=== PATIENT | male | born 1980 | race African-American/Black ===

== ENCOUNTER 2017-06-11 01:25 | Emergency (ER) | payer OTHER ==
[~2017-06-11] VITALS: Ht 170.2 cm; Wt 77.1 kg
--- NOTE | 2017-06-11 01:47 | PHYS DOC ---
Past Medical History Past Medical History: No Pertinent History Past Surgical History: No Surgical History Alcohol Use: None Drug Use: None Adult General Chief Complaint Chief Complaint: WRIST PAIN HPI HPI Patient is a 36 year old M who presents with left pain. Patient states approximately a week ago he injured his wrist at work and since then the pain has been persistent. While tonight at work the pain was worse therefore worked abdomen to the emergency room for an evaluation. Patient denies any recent trauma. Patient has pain with flexing his wrist. Patient denies any injuries to his elbow or shoulder. Patient elevated blood pressure in triage which she states takes no medication for and did not know he had elevated blood pressure. Patient states he has no headache no blurry vision and is asymptomatic from the elevated blood pressure. Review of Systems Review of Systems GEN: Denies fevers, chills, sweats HEENT: Denies blurred vision, sore throat CV: Denies chest pain RESP: Denies shortness of air, cough GI: Denies n/v/d NEURO: Denies confusion, dizziness MSK: Left wrist pain Current Medications Current Medications Current Medications Medications (Trade) Dose Ordered Sig/Jacque Start Time Stop Time Status Last Admin Dose Admin Clonidine HCl (Catapres) 0.1 mg 1X ONCE 06/11/17 02:30 06/11/17 02:31 UNV Physical Exam Physical Exam GEN.: No apparent distress. Alert and oriented. HEENT: Head is normocephalic, atraumatic NECK: Supple. LUNGS: CTAB. HEART: RRR, S1, S2 present. Peripheral pulses intact ABDOMEN: Soft, nontender. Positive bowel sounds. EXTREMITIES: Without any cyanosis, enters palpation to the left distal radius with decreased range of motion secondary to pain, no obvious deformity to the left distal radius, radial pulse +2, capillary refill to the fingers less than 2 seconds. NEUROLOGIC: Normal speech, normal tone PSYCHIATRIC: Normal affect, normal mood. SKIN: No ulcerations Current Patient Data Vital Signs Vital Signs Date Time Temp Pulse Resp B/P (MAP) Pulse Ox O2 Delivery O2 Flow Rate FiO2 06/11/17 01:29 98.9 87 20 99 Room Air 98.9 EKG EKG [] Radiology/Procedures Radiology/Procedures [] Course & Med Decision Making Course & Med Decision Making Pertinent Labs and Imaging studies reviewed. (See chart for details) ED course: Patient was seen and examined emergency room x-ray of his left wrist was ordered There was told to the patient to follow-up with [employer] work comp tomorrow and report the injury and whatever protocols to have since we do not have them on file. 0218: Patient was updated on x-ray results. Repeat blood pressure was 180/100 and patient was asymptomatic. Recommended observing the patient for period time before discharging. 0225: We'll give the patient 0.1 and Catapres in the emergency room and place him on Norvasc 5 mg daily and have him follow-up MDM: After reviewing the chart, CC/HPI/PMH, physical exam, [radiological results], I do not believe the patient has significant wrist injury warranting further workup and/or admission at this time. I do not believe the patient is having hypertensive crisis and he is asymptomatic hypertension. We'll go ahead and treat the patient for his asymptomatic hypertension with a prescription for Norvasc and follow-up information for low-cost clinics. Patient stable for discharge. Additional verbal discharge instructions were provided to the patient and that if symptoms get worse or any new symptoms arise that are worrisome to the patient he is to return to the emergency room immediately [] Dragon Disclaimer Dragon Disclaimer This electronic medical record was generated, in whole or in part, using a voice recognition dictation system. Departure Departure Impression: Primary Impression: Left wrist sprain Additional Impression: Hypertension Disposition: 01 HOME, SELF-CARE Condition: IMPROVED Patient Instructions: Arterial Hypertension, Wrist Splint, [id number] Additional Instructions: Please follow up with a work comp for further evaluation and management of your left wrist sprain. Please follow up with low cost clinic to further evaluate your hypertension. Scripts Amlodipine Besylate (NORVASC) 5 Mg Tablet 1 TAB PO DAILY, #30 TAB 5 Refills Prov: CRISTINA HERNANDEZ DO 06/11/17 Problem Qualifiers CRISTINA HERNANDEZ DO Jun 11, 2017 01:47
[2017-06-11] MEDS ORDERED: cloNIDine HCL 0.1 MG TABLET PO ONE (02:30)
[2017-06-11] MEDS ORDERED: cloNIDine HCL 0.1 MG TABLET ONE (02:31)
[2017-06-11] MEDS ORDERED: AMLO5TAB4 PO (02:31)
[2017-06-11 02:32] VITALS: BP 179/99
--- NOTE | 2017-06-11 07:26 | RAD ---
Examination: 3 views of the left wrist History: History of wrist pain, swelling Comparison: None available Findings: The alignment of the carpal bones grossly appears unremarkable. There is no obvious acute fracture identified. Impression: No acute osseous findings.
== END 2017-06-11 02:40 | disposition home or self-care (01) ==
LOC: ER 01:25
DX: S63.502A Unspecified sprain of left wrist, initial encounter (principal); I10 Essential (primary) hypertension; X58.XXXA Exposure to other specified factors, initial encounter; Y93.89 Activity, other specified; Y99.8 Other external cause status; Y92.89 Other specified places as the place of occurrence of the external cause
CPT/HCPCS: 29125; 73110; 99284-25

== ENCOUNTER 2021-08-05 13:11 | Emergency (ER) | payer SELFPAY ==
[~2021-08-05] VITALS: Ht 175.3 cm; Wt 85.0 kg
[~2021-08-05 13:11] MED LIST: AMLO5TAB4 PO
[2021-08-05 16:02] LABS: BILIRUBIN,URINE NEGATIVE (NEG); CLARITY,URINE CLOUDY; COLOR,URINE YELLOW; NITRITE,URINE NEGATIVE (NEG); PH,URINE 7.5 (<5.0-8.0); PROTEIN,URINE NEGATIVE (NEG-TRACE)
[2021-08-05 16:24] LABS: AMORPHOUS SEDIMENT,UR PRESENT /HPF; BACTERIA,URINE 0 /HPF (0-FEW)
--- NOTE | 2021-08-05 16:44 | RAD ---
CLINICAL HISTORY: Reason: Left testicle pain / Spl. Instructions: / History: COMPARISON: None available TECHNIQUE: Ultrasound images of the scrotum was performed with feliciano-scale and color doppler. FINDINGS: The right testis measures 4.1 x 2.7 x 2.2. The left testis measures 3.8 x 2.4 x 1.7. There is no intratesticular abnormality. Testicular vascularity is symmetric and within normal limits . Incidental punctate calcifications are seen in both testicles The epididymis is normal in appearance bilaterally. There is no hydrocele or varicocele. IMPRESSION: Essentially unremarkable scrotal ultrasound. Testicular microlithiasis. This is of unknown clinical significance and may be related to granulomato us infection, however occasionally testicular calcifications possibly disposition to malignancy Electronically signed by: Tammy Best MD (08/05/2021 4:41 PM) [facility]
--- NOTE | 2021-08-05 17:27 | RAD ---
EXAMINATION: CT HEAD/BRAIN WO CLINICAL HISTORY: Elevated blood pressure TECHNIQUE: Serial axial images without IV contrast were obtained from the vertex to the foramen magnu m. CT Dose Reduction Employed: One or more of the following individualized dose reduction techniques wer e utilized for this examination: 1. Automated exposure control 2. Adjustment of the mA and/or kV ac cording to patient size 3. Use of iterative reconstruction technique. COMPARISON: None FINDINGS: Acute Change: No evidence of acute intracranial abnormality. Hemorrhage: No evidence of acute intracranial hemorrhage. Mass Lesion/Mass Effect: No evidence of intracranial mass or extraaxial fluid collection. No signific ant mass effect. Parenchyma: Parenchyma within normal limits for age. Ventricles: Ventricles within normal limits for age. Paranasal Sinuses and Skull Base: Visualized paranasal sinuses clear. Visualized skull base and soft tissues unremarkable. IMPRESSION: No evidence of acute intracranial abnormality. Electronically signed by: Chris Stauffer DO (08/05/2021 5:25 PM) [facility]
--- NOTE | 2021-08-05 17:29 | RAD ---
EXAMINATION: XR CHEST 1V CLINICAL HISTORY: Testicular pain EXAM DATE/TIME: 08/05/2021 4:58 PM COMPARISON: None FINDINGS: Lines, Tubes, and Devices: None. Cardiomediastinal Silhouette: Within normal limits. Lungs and Pleura: No evidence of focal airspace consolidation or pleural effusion. Pulmonary vasculat ure unremarkable. Bones and Soft Tissues: No acute osseous abnormality. IMPRESSION: No evidence of acute cardiopulmonary abnormality. Electronically signed by: Chris Stauffer DO (08/05/2021 5:26 PM) [facility]
--- NOTE | 2021-08-05 18:32 | PHYS DOC ---
Past Medical History Past Medical History: No Pertinent History (RYAN ADAMS APRN) Past Surgical History: No Surgical History (RYAN ADAMS APRN) Smoking Status: Current Every Day Smoker Alcohol Use: None Drug Use: None (RYAN ADAMS APRN) General Adult EDM: Chief Complaint: GROIN PAIN HPI: HPI: Patient is a 40-year-old male who presents emergency department with chief complaint of left testicular pain for the past week. Patient denies trauma or injury to his testicle. Reports a slow onset of pain currently rates at a 6 out of 10 pain scale. Denies swelling or redness to his testicles. Denies lesions or rashes to his groin or genitals. Denies recent fever or chills. Denies seeing blood in his urine. Denies pain with urination, increased urinary fr equency, urinary burning. Patient denies penile discharge, denies STI concerns. Patient denies seeing blood in his semen. Patient denies increased pain during sex or ejaculation. Patient denies numbness or tingling to his groin or buttocks area. Patient denies a family history of testicular cancer or other cancers. Reports a family history of diabetes, heart disease, hypertension. Patient denies taking prescription medications at home, denies taking [id number] pain medications or trying nonpharmacological pain relief methods since pain started 1 week ago, patient denies other physical complaints or physical concerns. (RYAN ADAMS APRN) Review of Systems: Review of Systems: 14 body systems of review of systems have been reviewed. See HPI for pertinent positives and negative responses, otherwise all other systems are negative, nonpertinent or noncontributory. Constitutional: Negative except as outlined in HPI above. Skin: Negative except as outlined in HPI above. Eyes: Negative except as outlined in HPI above. HENT: Negative except as outlined in HPI above. Respiratory: Negative except as outlined in HPI above. Cardiovascular: Negative except as outlined in HPI above. GI: Negative except as outlined in HPI above. : Negative except as outlined in HPI above. Musculoskeletal: Negative except as outlined in HPI above. Integument: Negative except as outlined in HPI above. Neurologic: Negative except as outlined in HPI above. Endocrine: Negative except as outlined in HPI above. Lymphatic: Negative except as outlined in HPI above. Psychiatric: Negative except as outlined in HPI above. (RYAN ADAMS APRN) Heart Score: C/O Chest Pain: No Risk Factors: Risk Factors: DM, Current or recent (<one month) smoker, HTN, HLP, family history of CAD, obesity. Risk Scores: Score 0 - 3: 2.5% MACE over next 6 weeks - Discharge Home Score 4 - 6: 20.3% MACE over next 6 weeks - Admit for Clinical Observation Score 7 - 10: 72.7% MACE over next 6 weeks - Early Invasive Strategies (RYAN ADAMS APRN) Allergies: Allergies: Allergies Coded Allergies Type Severity Reaction Last Updated Verified No Known Drug Allergies 08/05/21 No (RYAN ADAMS APRN) Physical Exam: PE: Constitutional: Well developed, well nourished, no acute distress, non-toxic appearance. 40-year-old male in no apparent distress. HENT: Normocephalic, atraumatic. Eyes: Conjunctiva normal, no discharge. Neck: Normal range of motion. Cardiovascular: Distal cap refill less than 2 seconds, no cyanosis appreciated. Lungs & Thorax: Patient is in no respiratory distress, no adventitious lung sounds appreciated. Abdomen: Bowel sounds normal, soft, no tenderness, no masses, no pulsatile masses. No bruising or skin discoloration of the abdomen. Skin: Warm, dry, no erythema, no rash. Back: No tenderness, no CVA tenderness. Extremities: No tenderness, no cyanosis, no clubbing, ROM intact, no edema. Neurologic: Alert and oriented X 3, normal motor function, normal sensory function, no focal deficits noted. Psychologic: Affect normal, judgement normal, mood normal. : Testicular and genital exam performed with ED nurse at bedside for general handling supervisor, no lesions appreciated of the genitals testicles or penis. No penile discharge appreciated. No rashes appreciated. Pain to palpation of left testicle, no epididymal swelling or abnormalities appreciated, no inguinal hernias appreciated, no swelling or erythema of the testicles appreciated. No pain to palpation of the right testicle. No epididymal swelling of the right epididymis. (RYAN ADAMS APRN) Current Patient Data: Labs: Laboratory Tests Test 08/05/21 15:54 Urine Collection Type Unknown Urine Color Yellow Urine Clarity Cloudy Urine pH 7.5 (<5.0-8.0) Urine Specific [place] 1.015 (1.000-1.030) Urine Protein Negative mg/dL (NEG-TRACE) Urine Glucose (UA) Negative mg/dL (NEG) Urine Ketones (Stick) Negative mg/dL (NEG) Urine Blood Negative (NEG) Urine Nitrite Negative (NEG) Urine Bilirubin Negative (NEG) Urine Urobilinogen Dipstick 1.0 mg/dL (0.2 mg/dL) Urine Leukocyte Esterase Negative (NEG) Urine RBC 1-2 /HPF (0-2) Urine WBC 1-4 /HPF (0-4) Urine Squamous Epithelial Cells Occ /LPF Urine Amorphous Sediment Present /HPF Urine Bacteria 0 /HPF (0-FEW) Vital Signs: Vital Signs Date Time Temp Pulse Resp B/P (MAP) Pulse Ox O2 Delivery O2 Flow Rate FiO2 08/05/21 16:51 222/105 (144) 08/05/21 15:47 97.8 80 17 99 Room Air 97.8 (RYAN ADAMS APRN) EKG: EKG: [] (RYAN ADAMS APRN) Radiology/Procedures: Radiology/Procedures: REASON: eleavted bp PROCEDURE: CT HEAD WO CONTRAST EXAMINATION: CT HEAD/BRAIN WO CLINICAL HISTORY: Elevated blood pressure TECHNIQUE: Serial axial images without IV contrast were obtained from the vertex to the foramen magnum. CT Dose Reduction Employed: One or more of the following individualized dose reduction techniques were utilized for this examination: 1. Automated exposure control 2. Adjustment of the mA and/or kV according to patient size 3. Use of iterative reconstruction technique. COMPARISON: None FINDINGS: Acute Change: No evidence of acute intracranial abnormality. Hemorrhage: No evidence of acute intracranial hemorrhage. Mass Lesion/Mass Effect: No evidence of intracranial mass or extraaxial fluid collection. No significant mass effect. Parenchyma: Parenchyma within normal limits for age. Ventricles: Ventricles within normal limits for age. Paranasal Sinuses and Skull Base: Visualized paranasal sinuses clear. Visualized skull base and soft tissues unremarkable. IMPRESSION: No evidence of acute intracranial abnormality. Electronically signed by: Chris Stauffer DO (08/05/2021 5:25 PM) [facility] REASON: testicular pain PROCEDURE: CHEST AP ONLY EXAMINATION: XR CHEST 1V CLINICAL HISTORY: Testicular pain EXAM DATE/TIME: 08/05/2021 4:58 PM COMPARISON: None FINDINGS: Lines, Tubes, and Devices: None. Cardiomediastinal Silhouette: Within normal limits. Lungs and Pleura: No evidence of focal airspace consolidation or pleural effusion. Pulmonary vasculature unremarkable. Bones and Soft Tissues: No acute osseous abnormality. IMPRESSION: No evidence of acute cardiopulmonary abnormality. Electronically signed by: Chris Stauffer DO (08/05/2021 5:26 PM) [facility] REASON: Left testicle pain PROCEDURE: TESTICULAR/SCROTUM CLINICAL HISTORY: Reason: Left testicle pain / Spl. Instructions: / History: COMPARISON: None available TECHNIQUE: Ultrasound images of the scrotum was performed with feliciano-scale and color doppler. FINDINGS: The right testis measures 4.1 x 2.7 x 2.2. The left testis measures 3.8 x 2.4 x 1.7. There is no intratesticular abnormality. Testicular vascularity is symmetric and within normal limits. Incidental punctate calcifications are seen in both testicles The epididymis is normal in appearance bilaterally. There is no hydrocele or varicocele. IMPRESSION: Essentially unremarkable scrotal ultrasound. Testicular microlithiasis. This is of unknown clinical significance and may be related to granulomatous infection, however occasionally testicular calcifications possibly disposition to malignancy Electronically signed by: Tammy Best MD (08/05/2021 4:41 PM) [facility] (RYAN ADAMS APRN) Course & Med Decision Making: Course & Med Decision Making Pertinent Labs and Imaging studies reviewed. (See chart for details) 40-year-old male, vital signs reviewed, presents to the emergency department concerning left testicular pain for the past week. Physical examination concerning for torsion versus other testicular abnormality. Will order sonogram of testicle and scrotum. Patient has marked high blood pressure during triage, 225/150. All other vital signs within normal limits. Discussed this with patient, patient reports he has high blood pressure but does not take blood pressure medications, he has been offered and treated for high blood pressure with Norvasc in the past however he states he does not like to take blood pressure medications and does not want to take blood pressure medications, is not interested in treating his blood pressure. Patient states "I will let God's plan take its course ". Patient is adamant that he is not homicidal or suicidal. Discussed with patient need to order EKG, CT head without contrast to rule out endorgan damage for high blood pressure, chest x-ray to rule out endorgan damage from high blood pressure, EKG, serum labs to rule out endorgan damage from high blood pressure. Patient has refused EKG and labs, states he will allow radiologic imaging. Discussed discussed with patient risk versus benefits of incomplete ED work-up related to his high blood pressure. Discussed with patient ongoing untreated high blood pressure can lead to kidney disease, kidney damage, irreversible kidney damage, strokes, irreversible heart disease, can lead to , or permanent disability. Patient reports he is very aware and continues to be uninterested and work-up related to his high blood pressure. Discussed patient's refusal for high blood pressure work-up with ED attending physician Dr. Dillard, Dr. Dillard discussed with patient at length at patient's bedside risk versus benefits of high blood pressure investigation for endorgan damage in the emergency department and treatment of high blood pressure at home, Dr. Dillard discussed all risks and benefits to include permanent disability including . Patient continues to refuse ED work-up for high blood pressure presentation. CT imaging of head and chest x-ray did not show evidence of endorgan damage. Sonogram of testicle revealed left testicular abnormality, concerning for granulomatous versus malignancy. Discussed this with patient, discussed strict follow-up with urology soon. Call tomorrow for an appointment. Discussed with patient will be leaving the emergency department AGAINST MEDICAL ADVICE related to refusal of offered investigation for high blood pressure presentation in the ED today. Patient gave verbal understanding of this stating he is aware of the risk and benefits. Discussed with patient we will give him a period of time to think about life threatening decisions and will reevaluate after period of time. Patient is discharged blood pressure 222/105. All other vital signs within normal limits. Patient remained nontoxic in appearance, denied headaches, chest pain, shortness of breath, syncopal and near syncopal episodes. Notified by the patient's ED nurse that the patient wishes to leave AGAINST MEDICAL ADVICE. The patient and I had an extensive discussion regarding the risks of leaving AMA including but not limited to , permanent disability, and worsening condition. Also had an extensive discussion with the patient regarding the benefits of excepting admission and transfer which include promotion of health and wellness, and ongoing treatment of disease processes. The patient acknowledged the risks and benefits and agreed to take full responsibility of leaving AGAINST MEDICAL ADVICE. The patient was alert and oriented x4 and had full medical decision-making capability when they signed the AMA forms. (RYAN ADAMS APRN) Course & Med Decision Making I spoke to patient with my midlevel present. Patient aware of concern for permanent disability or secondary to organ damage from uncontrolled hypertension (a few examples given included renal failure, acute myocardial infarction, aortic dissection or stroke). Patient refusing any lab draws stating he is does not want to be poked for blood despite risks of disability or . The patient has decided to leave our facility against medical advice. I have assessed patient's ability to make informed decision and feel the patient has the capacity to comprehend information regarding the current medical condition and appreciates the impact of the disease or condition and the consequences of various options for treatment, including foregoing treatment. The patient possesses the ability to evaluate all treatment options, comparing the risks and benefits of each option, communicate his or her choice in a consistent manner over time, and is able to make rational choices. I explained to the patient further testing, treatment, and evaluation I would like to perform in the emergency department visit as well as any possible alternatives that can be accomplished in a timely manner. I have outlined the possible risks of foregoing any or all of these interventions and the patient understands and acknowledges that the decision to leave may result in undesirable consequences such as , permanent disability, and/or loss of current lifestyle. Even though leaving AMA is not ideal, I have instructed the patient to follow any discharge instructions given, take any medications prescribed, and resume care as soon as possible with another provider (within 24 hours). This conversation was witnessed by another member of the emergency department staff and we clearly communicated the patient is welcome to return anytime to continue care at our facility. (VINAY DILLARD DO) Dragon Disclaimer: Dragon Disclaimer: This electronic medical record was generated, in whole or in part, using a voice recognition dictation system. (RYAN ADAMS APRN) Departure Departure Impression: Primary Impression: Abnormal ultrasound Additional Impressions: Left testicular pain High blood pressure Qualified Codes: I10 - Essential (primary) hypertension Left against medical advice Refusal of care by patient Disposition: 07 LEFT AGAINST MEDICAL ADVICE Condition: GOOD Referrals: NO PCP (PCP) Additional Instructions: You were seen today in the emergency department for left testicular pain. An ultrasound was done today and did show an abnormal finding. I have attached the report to this document, please follow-up with a urologist soon for further investigation and management of these abnormal findings of your testicular ultrasound. You may consider using the urology clinic, call tomorrow for an appointment, their telephone number is area code [phone]. However, you may use any urology specialist of your choice. You presented today in the emergency department with a very high blood pressure of 245/150. Both myself and ED attending physician Dr. Dillard spoke with you at length urging you to accept recommended work-up and treatment for high blood pressure, however you have refused this after our lengthy discussions. Please reconsider. Please return to the emergency department immediately for syncopal episodes, increased headaches, chest pains, syncopal episodes, dizziness, or other concerns. Please reconsider your decision to not treat your high blood pressure. Thank you for visiting our Emergency Department. It was a pleasure taking care of you today in the emergency department and we appreciate you trusting us with your care. If any additional problems come up don't hesitate to return to visit us. Please follow up with your primary care provider so they can plan additional care if needed and know about the problem that you had. If symptoms worsen come back to the Emergency Department. Any concerning symptoms that start such as chest pain, shortness of air, weakness or numbness on one side of the body, running high fevers or any other concerning symptoms return to the ER. Patient does not wish to proceed with medical care recommended by ANY [place] patient given information related to possible complications, up to and including , which could occur as a result of leaving the hospital at this time. Patient verbalizes understanding of risks involved due to leaving against medical advice. Patient has signed AMA form. EMERGENCY DEPARTMENT GENERAL DISCHARGE INSTRUCTIONS Thank you for coming to [facility] Emergency Department (ED) today and trusting us with you care. We trust that you had a positive experience in our Emergency Department. If you wish to speak to the department management, you may call the Director at [phone]. YOUR FOLLOW UP INSTRUCTIONS ARE FOLLOWS: 1. Do you have a private Doctor? If you do not have a private doctor, please ask for a resource list of physicians or clinics that may be able to assist you with follow up care. 2. The Emergency Physicain has interpreted your x-rays. The X-Ray specialist will also review them. If there is a change in the findings, you will be notified in 48 hours when at all possible. 3. A lab test or culture has been done, your results will be reviewed and you will be notified if you need a change in treatment. ADDITIONAL INSTRUCTIONS AND INFORMATION: 1. Your care today has been supervised by a physician who is specially trained in emergency care. Many problems require more than one evaluation for a complete diagnosis and treatment. We recommend that you schedule your follow up appointment as recommended to ensure complete treatment of you illness or injury. If you are unable to obtain follow up care and continue to have a problem, or if your condition worsens, we recommend that you return to the ED. 2. We are not able to safely determine your condition over the phone nor are we able to give sound medical advice over the phone. For these safety reasons, if you call for medical advice we will ask you to come to the ED for further evaluation. 3. If you have any questions regarding these discharge instructions please call the ED at [phone]. SAFETY INFORMATION: In the interest of safety, wellness, and injury prevention; we encourage you to wear your sealbelt, if you smoke; quite smoking, and we encourage family to use a protective helmet for bicycling and other sporting events that present an increased risk for head injury. IF YOUR SYMPTOMS WORSEN OR NEW SYMPTOMS DEVELOP, OR YOU HAVE CONCERNS ABOUT YOUR CONDITION; OR IF YOUR CONDITION WORSENS WHILE YOU ARE WAITING FOR YOUR FOLLOW UP APPOINTMENT; EITHER CONTACT YOUR PRIMARY CARE DOCTOR, THE PHYSICIAN WHOSE NAME AND NUMBER YOU WERE GIVEN, OR RETURN TO THE ED IMMEDIATELY. RYAN ADAMS APRN Aug 05, 2021 18:32 VINAY DILLARD DO Aug 05, 2021 18:37
[2021-08-05 18:41] VITALS: BP 232/110
[2021-08-05 20:03] LABS: BARBITURATES NEG (NEG); BENZODIAZEPINES NEG (NEG); CANNABINOIDS POS (NEG); COCAINE NEG (NEG); METHADONE NEG (NEG); OPIATES NEG (NEG); PHENCYCLIDINE NEG (NEG)
[2021-08-05 20:04] LABS: AMPHETAMINE/METHAMPHETAMINE NEG (NEG)
== END 2021-08-05 18:41 | disposition left against medical advice (07) ==
LOC: ER 13:11
DX: N50.812 Left testicular pain (principal); I10 Essential (primary) hypertension; R93.89 Abnormal findings on diagnostic imaging of other specified body structures
CPT/HCPCS: 70450; 71045; 76870; 80307; 81001; 99285-25